=== PATIENT | male | born 1970 | race Caucasian/White ===

== ENCOUNTER 2024-04-05 10:53 | Emergency (ER) | payer OTHER, SELFPAY ==
--- NOTE | ~2024-04-05 | XR_ITS ---
EXAMINATION: XR chest 2V DATE: 04/05/2024 11:38 INDICATION: 3 weeks of productive cough TECHNIQUE: PA and lateral views of the chest were obtained. COMPARISON: None FINDINGS: The lungs are clear with no focal airspace opacities, pulmonary edema, pleural effusion or pneumothor ax. The cardiomediastinal silhouette is normal. Mild thoracic spondylosis. Partially visualized wyatt ar hook and vertical preeti at the visualized upper lumbar spine for likely more caudal posterior lumbar spinal fusion. IMPRESSION: 1. No acute cardiopulmonary disease. Reviewed, dictated and finalized at location B.
[2024-04-05 11:09] VITALS: BP 128/71; PULSE 82; RESP 16; TEMP 37.4; O2SAT 98
--- NOTE | 2024-04-05 12:01 | ED.URI ---
HPI - URI/Sore Throat General Chief Complaint: Upper Respiratory Infection Stated Complaint: Cough and Short Breath Time Seen by Provider: 04/05/24 11:23 Source: patient and RN notes reviewed Mode of arrival: ambulatory Limitations: no limitations History of Present Illness HPI Narrative: Patient presents today with 3 week history of cough that has been worsening since onset, shortness of breath with coughing episodes. Reports the cough is occasionally productive. He was taking some [id number] medicine at onset of symptoms, but nothing recently. No history of asthma or COPD. He is a nonsmoker. Related Data Home Medications Medication Instructions Recorded Confirmed lisinopril 10 1 tablet DIRECTED 04/05/24 04/05/24 mg-hydrochlorothiazide 12.5 mg tablet metformin 500 mg tablet,extended 500 mg PO DIRECTED 04/05/24 04/05/24 release 24 hr simvastatin 40 mg tablet 40 mg DIRECTED 04/05/24 04/05/24 Allergies Allergy/AdvReac Type Severity Reaction Status Date / Time ertapenem Allergy Intermediate SEVERE Unverified 01/25/09 11:36 NAUSEA, DIAPHORESIS,DIZZINESS propoxyphene Allergy Unknown Verified 01/25/09 11:36 Review of Systems Review of Systems: CONSTITUTIONAL: Denies body aches, fever, chills, or sweats. EYES: Denies visual changes, redness, or discharge. ENT: Denies rhinorrhea, congestion, sore throat, or otalgia. CARDIOVASCULAR: Denies chest pain, palpitations, or edema. RESPIRATORY: + cough, shortness breast GASTROINTESTINAL: Denies abdominal pain, nausea, vomiting, or diarrhea. GENITOURINARY: Denies dysuria or hematuria. SKIN: Denies rash, itching, or wounds. MUSCULOSKELETAL: Denies back pain, joint pain, or myalgia. NEUROLOGIC: Denies headache, numbness, tingling, or weakness. PSYCH: Denies depression or anxiety. PMFSH Comments At time of signature, I have reviewed and agree with nursing past medical, surgical, social and family history unless otherwise noted. Please see nursing chart for further information. There is no relevant family history pertinent to the presenting complaint Exam Narrative: GENERAL: Well-appearing, well-nourished, and in no acute distress. HEAD: Normocephalic, atraumatic. EYES: EOMI. No redness or drainage. Conjunctivae normal. ENT: Mucous membranes pink and moist. Nares clear. No rhinorrhea. TMs normal bilaterally. Throat normal. Uvula midline. NECK: Normal AROM. Supple. No lymphadenopathy. CHEST: No respiratory distress. Slight crackles in the bilateral lower lobes, otherwise clear HEART: Regular rate and rhythm. No murmur appreciated. EXTREMITIES: Normal range of motion. No edema. SKIN: Warm, dry, no rash. Capillary refill normal. Normal skin turgor. NEURO: No focal deficits. Alert and oriented x3. Gait steady. PSYCH: Normal affect. No signs of depression or anxiety. Course Course Level of Care: Express Care Visit Vital Signs Vital signs: Vital Signs Temperature 99.3 F 04/05/24 11:09 Pulse Rate 82 04/05/24 11:09 Respiratory Rate 16 04/05/24 11:09 Blood Pressure 128/71 04/05/24 11:09 Pulse Oximetry 98 04/05/24 11:09 Oxygen Delivery Room Air 04/05/24 11:09 Temperature 99.3 F 04/05/24 11:09 Pulse Rate 82 04/05/24 11:09 Respiratory Rate 16 04/05/24 11:09 Blood Pressure 128/71 04/05/24 11:09 Pulse Oximetry 98 04/05/24 11:09 Oxygen Delivery Room Air 04/05/24 11:09 Reviewed MDM - URI/Sore Throat MDM Narrative Medical decision making narrative: Chest x-ray negative for pneumonia. Patient will be treated for bronchitis with prednisone and an albuterol inhaler. Anticipatory guidance given Differential Diagnosis Differential diagnosis: Likely upper respiratory infection, bronchitis and other (Pneumonia) Imaging Data Radiologist's impression: ITS Impressions Chest X-Ray 04/05/24 11:41 IMPRESSION: 1. No acute cardiopulmonary disease. [facility]
== END 2024-04-05 12:08 | disposition home or self-care (01) ==
PROVIDERS: Emergency Provider Nurse Practitioner; PCP Internal Medicine Gastroenterology
DX: J40 Bronchitis, not specified as acute or chronic (principal); E78.00 Pure hypercholesterolemia, unspecified; I10 Essential (primary) hypertension; E11.9 Type 2 diabetes mellitus without complications
CPT/HCPCS: 71046; 99213; G0463

== ENCOUNTER 2024-05-29 12:43 | Emergency (ER) | payer OTHER, SELFPAY ==
[2024-05-29 12:57] VITALS: BP 139/110; PULSE 68; RESP 20; TEMP 36.3; O2SAT 98
[2024-05-29] MEDS: LIDOCAINE HCL 1% LOCAL INJ 2 ML AMPUL 8 ML INFILTRATE (13:18)
[2024-05-29] MEDS: TETANUS,DIPHTHERIA,AC PERTUSSIS ADULT (0.5 ML) BOOSTRIX IM (13:19)
--- NOTE | 2024-05-29 13:23 | ED.WOUNDLAC ---
HPI - Wound/Laceration General Chief Complaint: Wound/Laceration Stated Complaint: left middle finger cut on metal Time Seen by Provider: 05/29/24 13:07 Source: patient and RN notes reviewed Mode of arrival: ambulatory Limitations: no limitations History of Present Illness HPI narrative: Patient presents today with a laceration to his left 3rd finger. Approximately 3 hours prior to arrival patient was moving a refrigerator and cut his finger on a piece of metal on it. Denies numbness or tingling in the finger. Currently pain-free. He is not up-to-date on his tetanus vaccine. Related Data Home Medications Medication Instructions Recorded Confirmed lisinopril 10 1 tablet PO DIRECTED 04/05/24 05/29/24 mg-hydrochlorothiazide 12.5 mg tablet metformin 500 mg tablet,extended 500 mg PO DIRECTED 04/05/24 05/29/24 release 24 hr simvastatin 40 mg tablet 40 mg DIRECTED 04/05/24 05/29/24 Allergies Allergy/AdvReac Type Severity Reaction Status Date / Time ertapenem Allergy Intermediate SEVERE Verified 05/29/24 12:46 NAUSEA, DIAPHORESIS,DIZZINESS propoxyphene Allergy Unknown Nausea Verified 05/29/24 12:46 cephalexin [From Keflex] Allergy Rash Verified 05/29/24 13:09 Review of Systems Review of Systems: CONSTITUTIONAL: Denies body aches, fever, chills, or sweats. EYES: Denies visual changes, redness, or discharge. ENT: Denies rhinorrhea, congestion, sore throat, or otalgia. CARDIOVASCULAR: Denies chest pain, palpitations, or edema. RESPIRATORY: Denies cough or dyspnea. GASTROINTESTINAL: Denies abdominal pain, nausea, vomiting, or diarrhea. GENITOURINARY: Denies dysuria or hematuria. SKIN: + finger laceration MUSCULOSKELETAL: Denies back pain, joint pain, or myalgia. NEUROLOGIC: Denies headache, numbness, tingling, or weakness. PSYCH: Denies depression or anxiety. [facility] Past Medical History Medical History (Updated 05/29/24 @ 13:46 by Anju Moreland, SENIOR PRINCIPAL SOFTWARE ENGINEER, ) High cholesterol Hypertension Comments At time of signature, I have reviewed and agree with nursing past medical, surgical, social and family history unless otherwise noted. Please see nursing chart for further information. There is no relevant family history pertinent to the presenting complaint Exam Narrative: GENERAL: Well-appearing, well-nourished, and in no acute distress. HEAD: Normocephalic, atraumatic. EYES: EOMI. No redness or drainage. Conjunctivae normal. ENT: Mucous membranes pink and moist. NECK: Normal AROM. CHEST: No respiratory distress. EXTREMITIES: Left 3rd finger: Approximately 3 cm full-thickness linear laceration to the palmar aspect the proximal and middle phalanx. Distal sensation intact. Capillary refill normal. Full range of motion of the finger against resistance. SKIN: Warm, dry, no rash. Capillary refill normal. Normal skin turgor. NEURO: No focal deficits. Alert and oriented x3. Gait steady. PSYCH: Normal affect. No signs of depression or anxiety. Course Course Level of Care: Express Care Visit Vital Signs Vital signs: Vital Signs Temperature 97.3 F L 05/29/24 12:57 Pulse Rate 68 05/29/24 12:57 Respiratory Rate 20 05/29/24 12:57 Blood Pressure 139/110 H 05/29/24 12:57 Pulse Oximetry 98 05/29/24 12:57 Oxygen Delivery Room Air 05/29/24 12:57 Temperature 97.3 F L 05/29/24 12:57 Pulse Rate 68 05/29/24 12:57 Respiratory Rate 20 05/29/24 12:57 Blood Pressure 120/80 05/29/24 13:52 Pulse Oximetry 98 05/29/24 12:57 Oxygen Delivery Room Air 05/29/24 12:57 Reviewed Procedures Laceration Laceration 1: Date: 05/29/24 Time: 13:44 Site: hand Side (If applicable): left Size (cm): 3 Description: linear Depth: simple, single layer Pre-repair: wound explored and irrigated ====== Skin Level ====== Skin layer closed with: nylon Size (cm): 5-0 Number of sutures: 4
[2024-05-29 13:52] VITALS: BP 120/80
== END 2024-05-29 13:59 | disposition home or self-care (01) ==
PROVIDERS: Emergency Provider Nurse Practitioner; PCP Internal Medicine Gastroenterology
DX: S61.213A Laceration without foreign body of left middle finger without damage to nail, initial encounter (principal); W45.8XXA Other foreign body or object entering through skin, initial encounter; Z23 Encounter for immunization; E78.00 Pure hypercholesterolemia, unspecified; I10 Essential (primary) hypertension
CPT/HCPCS: 12002; 90471; 90715; 99212; G0463

== ENCOUNTER 2025-05-04 16:16 | Outpatient (CLI) | payer MEDICARE, OTHER, SELFPAY ==
--- NOTE | ~2025-05-04 | XR_ITS ---
EXAM/ PROCEDURE: XR hand LT min 3V, XR hand RT min 3V - 05/04/2025 16:40 CDT HISTORY: 55 years old Male with Bilateral hand pain COMPARISON: None available TECHNIQUE: Three view(s) each FINDINGS/ IMPRESSION: There are no fractures or dislocations.Joint space narrowing, subchondral sclerosis, subchondral cyst formation and osteophyte formation, compatible with mild osteoarthritis. Reviewed, dictated and finalized at location A.
--- NOTE | ~2025-05-04 | XR_ITS ---
XR knee RT 3V 05/04/2025 16:51 Indication: Chronic right knee pain Procedure: 3 views right knee Comparison: No prior studies for comparison. Findings: There is mild patellofemoral compartment osteoarthritis. No fracture, subluxation or disloc ation. No significant joint effusion. No foreign bodies. Impression: 1: Mild patellofemoral compartment osteoarthritis. Reviewed, dictated and finalized at location A. Impression: 1: Mild patellofemoral compartment osteoarthritis.
--- OUTSIDE RECORDS SUMMARY | 2025-05-04 16:34 | XMS_ITS | Clinical Summary ---
Author Organization 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 Gender Identity Not on file Sexual Orientation Not on file Obstetrics History Last Filed Vital Signs Vital Sign Reading Time Taken Comments Blood Pressure 123/79 06/25/2023 5:33 PM CDT Pulse 80 06/25/2023 5:33 PM CDT Temperature 36.9 C (98.4 F) 06/25/2023 5:33 PM CDT Respiratory Rate 19 06/25/2023 5:33 PM CDT Oxygen Saturation 98% 06/25/2023 5:33 PM CDT Inhaled Oxygen Concentration - - Weight 104.3 kg (230 lb) 06/25/2023 5:33 PM CDT Height 162.6 cm (5' 4) 06/25/2023 5:33 PM CDT Body Mass Index 39.48 06/25/2023 5:33 PM CDT Plan of Treatment Health Maintenance Due Date Last Done Comments Colon Cancer Screening-Colonoscopy 1971 Depression Screening 1971 Hepatitis C Screening 1971 Prostate Cancer Screening-PSA 1971 Hepatitis B Screening 1989 Regular Well Visit/Exam 18-64 1989 Zoster Vaccine (1 of 2) 2021 Influenza Vaccine (#1) 2025 DTaP/Tdap/Td Vaccine (2 - Td or Tdap) 12/18/2026 12/18/2016 Pneumococcal vaccine <65 Aged Out No longer eligible based on patient's age to complete this topic Insurance [facility] [place] [facility] [place] Care Teams Boat Pilot Relationship Specialty Start Date End Date Unknown, Notinfile PCP - General 06/25/23
--- OUTSIDE RECORDS SUMMARY | 2025-05-04 16:34 | XMS_ITS | Clinical Summary ---
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 Gender Identity Not on file Sexual Orientation Not on file Plan of Treatment Health Maintenance Due Date Last Done Comments Colorectal Cancer Screening Colonoscopy (10 Years) 1971 Annual Physical 1974 Hepatitis C 1989 Hepatitis B Vaccines (1 of 3 - 19+ 3-dose series) 1990 Pneumococcal Vaccine: 50+ Ye ars (1 of 1 - PCV) 2021 Zoster Vaccines (1 of 2) 2021 COVID-19 Vaccine ( - 2023-2 5 season) 2024 DTaP, Tdap and Td Vaccines ( 2 - Td or Tdap) 12/18/2026 12/18/2016 Meningococcal B Vaccine Aged Out No l onger eligible based on patient's age to complete this topic Meningococcal Vaccine Aged Out No blu troy eligible based on patient's age to complete this topic RSV Immunizations Under 20 Months Aged Out No longer eligible based on patient's age to complete this topic Insurance [employer] Care Teams Roustabout Head Relationship Specialty Start Date End Date Bernarda Herbert PA-C [address] [place] [address] PCP - General PHYSICIAN HIDE M[employer] WORKER 12/21/21
--- OUTSIDE RECORDS SUMMARY | 2025-05-04 16:34 | XMS_ITS | Data Portability ---
Author Organization [place] [facility] Address [address] [place] [address] Care Team Providers Care Food And Beverage Analyst Name Role Phone ANU VAERLA Primary Care Provider Assessment Encounter Date Assessment Date Assessment LastModified by Organization Details LastModified Time 09/16/2023 09/16/2023 ROD Pastrana PA-S Not available 09/16/2023 11:02:11 Plan of Treatment Reminders Order Date Submit Date Provider Last Modified By Organization Details Last Modified Time Details Appointments NEW PATIENT 30 2024 03:00P M GRETA BLUE Not available Not available Not available Lab HbA1c (hemogl obin A1c), blood 2023 024 [facility], [address] [place] [address], [address], [place], [address], 04/22/2024 08:26:57 PSA, total, serum or plasma 2023 024 [facility], [address] [place] [address], [address], [place], [address], 04/22/2024 08:26:57 CMP, serum or plasma 2023 024 [facility], [address] [place] [address], [address], [place], [address], 04/22/2024 08:26:55 lipid panel, serum 2023 024 [facility], [address], [address], [place], [address], 04/22/2024 08:26:54 CBC 2023 024 [facility], [address], [address], [place], [address], 04/22/2024 08:26:58 TSH, ultra-s ensitiv e, serum 2023 024 [facility], [address], [address], [place], [address], 04/22/2024 08:26:56 CMP, serum or plasma 2022 023 [facility], [address], [address], [place], [address], 09/17/2023 06:17:59 CBC w/ auto diff 2022 023 [facility], [address], [address], [place], [address], 09/17/2023 06:18:00 HbA1c (hemogl obin A1c), blood 2022 023 In-Office Order, Internal Use Only DO Not Attach Compendium DO Not Attach Compendium, Do Not Delete/merge, [id number] 09/16/2023 11:15:13 albumin /creati nine, mass ratio, urine 2022 023 [facility], [address], [address], [place], [address], 12/29/2023 12:48:50 lipid panel, serum 2022 023 [facility], [address], [address], [place], [address], 09/17/2023 06:17:58 HbA1c (hemogl obin A1c), blood 2022 023 [facility] In-Office Order, Internal Use Only DO Not Attach Compendium DO Not Attach Compendium, Do Not Delete/merge, [id number] 06/12/2023 14:23:06 albumin /creati nine, mass ratio, urine 2022 023 [facility], [address] [place] [address] [address], [address], [place], [address], 06/12/2023 12:18:14 CMP, serum or plasma 2022 023 [facility], [address] [place] [address] [address], [address], [place], [address], 06/12/2023 12:18:13 CBC w/ auto diff 2022 023 [facility], [address] [place] [address] [address], [address], [place], [address], 06/12/2023 12:18:13 lipid panel, serum 2022 023 [facility], [address] [place] [address], [address], [place], [address], 06/12/2023 12:18:13 Referral podiatr ist referra l 2023 024 [email or web address] Santosh Wilkerson DPM, [address], [place], [address], 10/30/2024 09:02:56 diabeti c ophthal mology referra l - Diabete s eye exam 2022 023 [facility], [address], [place], [address], 07/15/2024 23:29:10 Procedures None recorde d. Surgeries None recorde d. Imaging MRI, knee, w/o contras t - positiv e mcmurra y sign, gives out on him, pain and instabi lity for six months, neggreta bhandari# [id number] 21 023-01/11 023 [facility] ([facility]), [address] [place], [address], 08/14/2023 12:50:07 XR, hand, 3 or more view - Left MCP joint pain and swellin g x 1 month [address] [place], [address], 09/19/2023 18:29:05 XR, knee - posteri or knee pain and instabi lity x 7-8 months 2022 023 [facility], [address] [place] [address] [place], [address], 09/15/2023 15:16:26 Medication Orders Zithrom ax Z-Cal 250 mg tablet [address] [facility], [facility] [place], [address], 05/04/2025 16:04:23 dextrom ethorph an-guai fenesin 10 mg-100 mg/5 mL oral syrup [address] [facility], [facility] [place], [address], 05/04/2025 16:04:36 cetiriz ine 10 mg tablet [address] [facility], [address] [place], [address], 05/04/2025 16:04:28 simvast atin 40 mg tablet 2023 024 [facility], [address] [place], [address], 04/21/2024 12:55:49 lisinop ril 10 mg-hydr ochloro thiazid e 12.5 mg tablet 2023 024 [facility] [address], [address] [place] [address], [address], 04/21/2024 12:55:51 metform in ER 500 mg tablet, extende d release 24 hr 2022 023 [facility] [address], [address] [place] [address], [address], 09/16/2023 10:54:21 lisinop ril 10 mg-hydr ochloro thiazid e 12.5 mg tablet 2022 023 [facility] [address], [address] [place] [address], [address], 09/16/2023 10:54:22 simvast atin 40 mg tablet 2022 023 [facility] [address], [address] [place] [address], [address], 09/16/2023 10:54:27 metform in ER 500 mg tablet, extende d release 24 hr 2022 023 [facility] [address], [address] [place] [address], [address], 06/12/2023 12:29:59 meloxic am 15 mg tablet 2022 [facility] [address] [place] [address], [address], 07/07/2023 14:33:26 lisinop ril 10 mg-hydr ochloro thiazid e 12.5 mg tablet 2022 023 [facility] [address], [address] [place] [address], [address], 06/12/2023 12:18:06 simvast atin 40 mg tablet 2022 023 [facility], [address] [facility], [place], [address], 06/12/2023 12:18:07 Patient TargetsNo targets recorded. Patient Instructions Encounter Date Encounter Id Patient Instructions Last Modified By Organization Details Last Modified Time 06/12/2023 [id number] A healthy lifestyle: care instructions Not available 06/12/2023 12:17:58 hamstring strain : care instructions Not available 06/12/2023 12:47:22 hamstring strain : rehab exercises Not available 06/12/2023 12:47:22 04/21/2024 [id number] bronchitis: care instructions [email or web address] Not available 04/21/2024 12:55:41 learning about type 2 diabetes Not available 04/21/2024 12:55:41 type 2 diabetes: care instructions Not available 04/21/2024 12:55:41 cough: care instructions [email or web address] Not available 04/21/2024 12:55:42 When You Want to Lose Weight: Care Instructions [email or web address] Not available 04/21/2024 12:55:41 A healthy lifestyle: care instructions [email or web address] Not available 04/21/2024 12:55:41 Reason for Referral Diabetic Ophthalmology Refer ral for Type 2 diabetes mellitus Diabetes eye exam Referring Physician: Bernarda Herbert, Irrigation District Manager, Encounter Date: 09/16/2023 Casualty Claim Adjuster Referral for Type 2 diabetes mellitus Diabetic footcare Referring Physician: Bailey Luna, Internal Medicine, Encounter Date: 04/21/2024 Hand Surgeon Referral for Ac quired trigger finger of left middle finger Referring Physician: Anu Varela, Family Medicine, Encounter Date: 05/04/2025 Results Created Date Observation Date Name Description Value Unit Range Abnormal Flag Note LastModifiedBy Organization Detail LastModifiedTime 06/12/2006/12/2023 HbA1c (hemo globi n A1c), blood HbA1c 7.4 Not Available In-Office Order Internal Use Only DO Not Attach Compendium DO Not Attach Compendium, Do Not Delete/merge, [id number] 06/12/2023 12:16:34 09/16/2009/16/2023 LIPID PANEL cholesterol, total 146 mg/dL 100-19 9 Not Available [address], [address], 09/17/2023 06:17:58 09/16/20 23 09/16/2023 LIPID PANEL triglyceride s 98 mg/dL 0-149 Not Available [address], [address], 09/17/2023 06:17:58 09/16/20 23 09/16/2023 LIPID PANEL HDL cholesterol 37 mg/dL 40-999 below low normal Not Available [address], [address], 09/17/2023 06:17:58 09/16/20 23 09/16/2023 LIPID PANEL VLDL cholesterol kaleb 20 mg/dL 5-40 Not Available [address], [address], 09/17/2023 06:17:58 09/16/20 23 09/16/2023 LIPID PANEL LDL chol calc ([facility]) 103 mg/dL 0-99 above high normal Not Available [address], [address], 09/17/2023 06:17:58 09/16/20 23 09/16/2023 COMP. METAB OLIC PANEL (14) glucose 150 mg/dL 70-99 above high normal Not Available [address], [address], 09/17/2023 06:17:59 09/16/20 23 09/16/2023 COMP. METAB OLIC PANEL (14) BUN 10 mg/dL 6-24 Not Available [facility] & [address], [address], 09/17/2023 06:17:59 09/16/20 23 09/16/2023 COMP. METAB OLIC PANEL (14) creatinine 0.67 mg/dL 0.76-1 .27 below low normal Not Available [address], [address], 09/17/2023 06:17:59 09/16/20 23 09/16/2023 COMP. METAB OLIC PANEL (14) eGFR 112 >=60 Units for eGFR value s are mL/mi n/1.7 3 The eGFR Calcu latio n has not been valid ated for patie nts under the age of 18. If test resul ts are displ ayed for a patie nt under the age of 18, disre carla that value . Not Available [facility] & [address], [address], 09/17/2023 06:17:59 09/16/20 23 09/16/2023 COMP. METAB OLIC PANEL (14) BUN/creatini ne ratio 15 9-20 Not Available [facility] & [address], [address], 09/17/2023 06:17:59 09/16/20 23 09/16/2023 COMP. METAB OLIC PANEL (14) sodium 138 mmol/ L 134-14 4 Not Available [address], [address], 09/17/2023 06:17:59 09/16/20 23 09/16/2023 COMP. METAB OLIC PANEL (14) potassium 4.6 mmol/ L 3.5-5. 2 Not Available [address], [address], 09/17/2023 06:17:59 09/16/20 23 09/16/2023 COMP. METAB OLIC PANEL (14) chloride 98 mmol/ L 96-106 Not Available [address], [address], 09/17/2023 06:17:59 09/16/20 23 09/16/2023 COMP. METAB OLIC PANEL (14) carbon dioxide, total 28 mmol/ L 20-29 Not Available [address], [address], 09/17/2023 06:17:59 09/16/20 23 09/16/2023 COMP. METAB OLIC PANEL (14) calcium 10.0 mg/dL 8.7-10 .2 Not Available [address], [address], 09/17/2023 06:17:59 09/16/20 23 09/16/2023 COMP. METAB OLIC PANEL (14) protein, total 7.3 g/dL 6.0-8. 5 Not Available [address], [address], 09/17/2023 06:17:59 09/16/20 23 09/16/2023 COMP. METAB OLIC PANEL (14) albumin 4.3 g/dL 3.8-4. 9 Not Available [address], [address], 09/17/2023 06:17:59 09/16/20 23 09/16/2023 COMP. METAB OLIC PANEL (14) globulin, total 3.0 g/dL 1.5-4. 5 Not Available [address], [address], 09/17/2023 06:17:59 09/16/20 23 09/16/2023 COMP. METAB OLIC PANEL (14) A/G ratio 1.0 1.2-2. 2 below low normal Not Available [address], [address], 09/17/2023 06:17:59 09/16/20 23 09/16/2023 COMP. METAB OLIC PANEL (14) bilirubin, total 0.8 mg/dL 0.0-1. 2 Not Available [address], [address], 09/17/2023 06:17:59 09/16/20 23 09/16/2023 COMP. METAB OLIC PANEL (14) alkaline phosphatase 137 IU/L 44-121 above high normal Not Available [address], [address], 09/17/2023 06:17:59 09/16/20 23 09/16/2023 COMP. METAB OLIC PANEL (14) AST (SGOT) 27 IU/L 0-40 Not Available [address], [address], 09/17/2023 06:17:59 09/16/20 23 09/16/2023 COMP. METAB OLIC PANEL (14) ALT (SGPT) 45 IU/L 0-44 above high normal Not Available [address], [address], 09/17/2023 06:17:59 09/16/20 23 09/16/2023 CBC WITH DIFFE RENTI AL/PL ATELE T WBC 5.9 x10e3 /uL 3.4-10 .8 Not Available [address], [address], 09/17/2023 06:18:00 09/16/20 23 09/16/2023 CBC WITH DIFFE RENTI AL/PL ATELE T RBC 5.27 x10e6 /uL 4.14-5 .80 Not Available [address], [address], 09/17/2023 06:18:00 09/16/20 23 09/16/2023 CBC WITH DIFFE RENTI AL/PL ATELE T hemoglobin 15.6 g/dL 13.0-1 7.7 Not Available [address], [address], 09/17/2023 06:18:00 09/16/2009/16/2023 CBC WITH DIFFE RENTI AL/PL ATELE T hematocrit 46.8 % 37.5-5 1.0 Not Available [address], [address], 09/17/2023 06:18:00 09/16/2009/16/2023 CBC WITH DIFFE RENTI AL/PL ATELE T MCV 89 fL 79-97 Not Available [facility] & [address], [address], 09/17/2023 06:18:00 09/16/20 23 09/16/2023 CBC WITH DIFFE RENTI AL/PL ATELE T MCH 29.6 pg 26.6-3 3.0 Not Available [address], [address], 09/17/2023 06:18:00 09/16/20 23 09/16/2023 CBC WITH DIFFE RENTI AL/PL ATELE T MCHC 33.3 g/dL 31.5-3 5.7 Not Available [address], [address], 09/17/2023 06:18:00 09/16/20 23 09/16/2023 CBC WITH DIFFE RENTI AL/PL ATELE T RDW 12.8 % 11.5-1 4.5 Not Available [address], [address], 09/17/2023 06:18:00 09/16/20 23 09/16/2023 CBC WITH DIFFE RENTI AL/PL ATELE T platelets 208 x10e3 /uL 150-45 0 Not Available [facility] & [address], [address], 09/17/2023 06:18:00 09/16/20 23 09/16/2023 CBC WITH DIFFE RENTI AL/PL ATELE T neutrophils 53 % notest b. Not Available [address], [address], 09/17/2023 06:18:00 09/16/20 23 09/16/2023 CBC WITH DIFFE RENTI AL/PL ATELE T lymphs 36 % notest b. Not Available [address], [address], 09/17/2023 06:18:00 09/16/20 23 09/16/2023 CBC WITH DIFFE RENTI AL/PL ATELE T monocytes 8 % notest b. Not Available [address], [address], 09/17/2023 06:18:00 09/16/20 23 09/16/2023 CBC WITH DIFFE RENTI AL/PL ATELE T eos 1 % notest b. Not Available [address], [address], 09/17/2023 06:18:00 09/16/20 23 09/16/2023 CBC WITH DIFFE RENTI AL/PL ATELE T basos 1 % notest b. Not Available [address], [address], 09/17/2023 06:18:00 09/16/20 23 09/16/2023 CBC WITH DIFFE RENTI AL/PL ATELE T neutrophils (absolute) 3.2 x10e3 /uL 1.4-7. 0 Not Available [address], [address], 09/17/2023 06:18:00 09/16/20 23 09/16/2023 CBC WITH DIFFE RENTI AL/PL ATELE T lymphs (absolute) 2.1 x10e3 /uL 0.7-3. 1 Not Available [address], [address], 09/17/2023 06:18:00 09/16/2009/16/2023 CBC WITH DIFFE RENTI AL/PL ATELE T monocytes(ab solute) 0.5 x10e3 /uL 0.1-0. 9 Not Available [address], [address], 09/17/2023 06:18:00 09/16/20 23 09/16/2023 CBC WITH DIFFE RENTI AL/PL ATELE T eos (absolute) 0.1 x10e3 /uL 0.0-0. 4 Not Available [address], [address], 09/17/2023 06:18:00 09/16/20 23 09/16/2023 CBC WITH DIFFE RENTI AL/PL ATELE T baso (absolute) 0.1 x10e3 /uL 0.0-0. 2 Not Available [address], [address], 09/17/2023 06:18:00 09/16/20 23 09/16/2023 CBC WITH DIFFE RENTI AL/PL ATELE T immature granulocytes 0.5 % notest b. Not Available [address], [address], 09/17/2023 06:18:00 09/16/20 23 09/16/2023 CBC WITH DIFFE RENTI AL/PL ATELE T immature grans (abs) 0.0 x10e3 /uL 0.0-0. 1 Not Available [address], [address], 09/17/2023 06:18:00 09/16/20 23 09/16/2023 CBC WITH DIFFE RENTI AL/PL ATELE T NRBC 0 % 0-0 Not Available [facility] & [address], [address], 09/17/2023 06:18:00 09/16/20 23 09/16/2023 DIABE MICKY PATIE NT EDUCA TION pdf . Not Available [address], [address], 09/17/2023 06:18:00 09/16/20 23 09/16/2023 HbA1c (hemo globi n A1c), blood HbA1c 7.0 % Not Available In-Office Order Internal Use Only DO Not Attach Compendium DO Not Attach Compendium, Do Not Delete/merge, [id number] 09/16/2023 10:40:10 04/21/20 24 04/22/2024 LIPID PANEL cholesterol, total 200 mg/dL 100-19 9 above high normal Not Available [facility] ([facility]) [address] [place], [address], 04/22/2024 08:26:54 04/21/20 24 04/22/2024 LIPID PANEL triglyceride s 150 mg/dL 0-149 above high normal Not Available [facility] ([facility]) [address] [place], [address], 04/22/2024 08:26:54 04/21/20 24 04/22/2024 LIPID PANEL HDL cholesterol 42 mg/dL >39 Not Available [facility]) [address] [place], [address], 04/22/2024 08:26:54 04/21/20 24 04/22/2024 LIPID PANEL VLDL cholesterol kaleb 27 mg/dL 5-40 Not Available [facility]) [address] [place], [address], 04/22/2024 08:26:54 04/21/20 24 04/22/2024 LIPID PANEL LDL chol calc ([facility]) 131 mg/dL 0-99 above high normal Not Available [facility] ([facility]) [address] [place], [address], 04/22/2024 08:26:54 04/21/20 24 04/22/2024 COMP. METAB OLIC PANEL (14) glucose 158 mg/dL 70-99 above high normal Not Available [facility] ([facility]) [address] [place], [address], 04/22/2024 08:26:55 04/21/20 24 04/22/2024 COMP. METAB OLIC PANEL (14) BUN 11 mg/dL 6-24 Not Available [facility] ([facility]) [address] [place], [address], 04/22/2024 08:26:55 04/21/20 24 04/22/2024 COMP. METAB OLIC PANEL (14) creatinine 0.64 mg/dL 0.76-1 .27 below low normal Not Available [facility] ([facility]) [address] [place], [address], 04/22/2024 08:26:55 04/21/20 24 04/22/2024 COMP. METAB OLIC PANEL (14) eGFR 113 mL/mi n/1.7 3 >59 Not Available [facility] ([facility]) [address] [place], [address], 04/22/2024 08:26:55 04/21/20 24 04/22/2024 COMP. METAB OLIC PANEL (14) BUN/creatini ne ratio 17 9-20 Not Available [facility] ([facility]) [address] [facility], [place], [address], 04/22/2024 08:26:55 04/21/20 24 04/22/2024 COMP. METAB OLIC PANEL (14) sodium 137 mmol/ L 134-14 4 Not Available [facility] ([facility]) [address] [facility], [place], [address], 04/22/2024 08:26:55 04/21/20 24 04/22/2024 COMP. METAB OLIC PANEL (14) potassium 4.0 mmol/ L 3.5-5. 2 Not Available [facility] ([facility]) [address] [facility] [place] [place], [address], 04/22/2024 08:26:55 04/21/20 24 04/22/2024 COMP. METAB OLIC PANEL (14) chloride 97 mmol/ L 96-106 Not Available [facility] ([facility]) [address] [facility], [place], [address], 04/22/2024 08:26:55 04/21/20 24 04/22/2024 COMP. METAB OLIC PANEL (14) carbon dioxide, total 25 mmol/ L 20-29 Not Available [facility] ([facility]) [address] [facility] [place] [place], [address], 04/22/2024 08:26:55 04/21/20 24 04/22/2024 COMP. METAB OLIC PANEL (14) calcium 9.5 mg/dL 8.7-10 .2 Not Available [facility] ([facility]) [address] [facility] [place], [address], 04/22/2024 08:26:55 04/21/20 24 04/22/2024 COMP. METAB OLIC PANEL (14) protein, total 6.8 g/dL 6.0-8. 5 Not Available [facility] ([facility]) [address] [facility] [place] [place], [address], 04/22/2024 08:26:55 04/21/20 24 04/22/2024 COMP. METAB OLIC PANEL (14) albumin 4.0 g/dL 3.8-4. 9 Not Available [facility] ([facility]) [address] [place], [address], 04/22/2024 08:26:55 04/21/20 24 04/22/2024 COMP. METAB OLIC PANEL (14) globulin, total 2.8 g/dL 1.5-4. 5 Not Available [facility] ([facility]) [address] [place], [address], 04/22/2024 08:26:55 04/21/20 24 04/22/2024 COMP. METAB OLIC PANEL (14) bilirubin, total 0.7 mg/dL 0.0-1. 2 Not Available [facility] ([facility]) [address] [place], [address], 04/22/2024 08:26:55 04/21/20 24 04/22/2024 COMP. METAB OLIC PANEL (14) alkaline phosphatase 132 IU/L 44-121 above high normal Not Available [facility] ([facility]) [address] [place], [address], 04/22/2024 08:26:55 04/21/20 24 04/22/2024 COMP. METAB OLIC PANEL (14) AST (SGOT) 23 IU/L 0-40 Not Available [facility] ([facility]) [address] [place], [address], 04/22/2024 08:26:55 04/21/20 24 04/22/2024 COMP. METAB OLIC PANEL (14) ALT (SGPT) 32 IU/L 0-44 Not Available [facility] ([facility]) [address] [facility] [place] [place], [address], 04/22/2024 08:26:55 04/21/20 24 04/22/2024 TSH RFX ON ABNOR MAL TO FREE T4 TSH 1.080 uIU/m L 0.450- 4.500 Not Available [facility] ([facility]) [address] [facility], [place], [address], 04/22/2024 08:26:56 04/21/20 24 04/22/2024 HEMOG LOBIN A1C hemoglobin A1C 7.4 % 4.8-5. 6 above high normal Predi abete s: 5.7 - 6.4 Diabe micky: >6.4 Glyce chrissy contr ol for adult s with diabe micky: <7.0 Not Available [facility] ([facility]) [address] [facility], [place], [address], 04/22/2024 08:26:57 04/21/20 24 04/22/2024 PROST ATE-S PECIF IC AG prostate specific Ag 2.0 NG/mL 0.0-4. 0 [place] ECLIA metho dolog y. Accor ding to the Ameri can [employer]o g[employer] iatio n, Serum PSA shoul d decre ase and remai n at undet ectab le level s after radic al prost atect lisa. The AUA defin es bioch emica l recur rence as an initi al PSA value 0.2 ng/mL or great er follo wed by a subse quent confi rmato ry PSA value 0.2 ng/mL or great er. Value s obtai jesús with diffe rent assay metho ds or kits canno t be used inter israel eably . Resul ts canno t be inter prete d as absol jaqui evide nce of the prese nce or absen ce of chris weinstein se. Not Available [facility] ([facility]) [address] [facility], [place], [address], 04/22/2024 08:26:57 04/21/20 24 04/22/2024 CBC, PLATE LET, NO DIFFE RENTI AL WBC 10.2 x10e3 /uL 3.4-10 .8 Not Available [facility] ([facility]) [address] [facility], [place], [address], 04/22/2024 08:26:58 04/21/20 24 04/22/2024 CBC, PLATE LET, NO DIFFE RENTI AL RBC 5.23 x10e6 /uL 4.14-5 .80 Not Available [facility] ([facility]) [address] [facility], [place], [address], 04/22/2024 08:26:58 04/21/20 24 04/22/2024 CBC, PLATE LET, NO DIFFE RENTI AL hemoglobin 15.5 g/dL 13.0-1 7.7 Not Available [facility] ([facility]) [address] [facility], [place], [address], 04/22/2024 08:26:58 04/21/20 24 04/22/2024 CBC, PLATE LET, NO DIFFE RENTI AL hematocrit 46.8 % 37.5-5 1.0 Not Available [facility] ([facility]) [address] [facility], [place], [address], 04/22/2024 08:26:58 04/21/20 24 04/22/2024 CBC, PLATE LET, NO DIFFE RENTI AL MCV 90 fL 79-97 Not Available [facility] ([facility]) [address] [facility], [place], [address], 04/22/2024 08:26:58 04/21/20 24 04/22/2024 CBC, PLATE LET, NO DIFFE RENTI AL MCH 29.6 pg 26.6-3 3.0 Not Available [facility] ([facility]) [address] [facility], [place], [address], 04/22/2024 08:26:58 04/21/20 24 04/22/2024 CBC, PLATE LET, NO DIFFE RENTI AL MCHC 33.1 g/dL 31.5-3 5.7 Not Available [facility] ([facility]) [address], [place], [address], 04/22/2024 08:26:58 04/21/20 24 04/22/2024 CBC, PLATE LET, NO DIFFE RENTI AL RDW 13.0 % 11.6-1 5.4 Not Available [facility] ([facility]) [address] [facility], [place], [address], 04/22/2024 08:26:58 04/21/20 24 04/22/2024 CBC, PLATE LET, NO DIFFE RENTI AL platelets 210 x10e3 /uL 150-45 0 Not Available [facility] ([facility]) [address] [facility], [place], [address], 04/22/2024 08:26:58 05/04/20 25 05/04/2025 HbA1c (hemo globi n A1c), blood HbA1C 10.2 % Not Available In-Office Order Internal Use Only DO Not Attach Compendium DO Not Attach Compendium, Do Not Delete/merge, [id number] 05/04/2025 16:27:45 08/14/2008/14/2023 MRI, knee, w/o contr ast No observ ation record ed. [facility] [address] [place], [address], 08/15/2023 11:04:26 09/19/20 23 09/18/2023 XR, hand, 3 or more view No observ ation record ed. [facility] [address] , [place], [address], 09/23/2023 13:05:29 04/05/20 24 04/05/2024 XR, chest No observ ation record ed. [place] [id number] [facility] [address], [place], [address], 04/06/2024 04:06:28 Result Notes None recorded. Problems Name Problem SNOMED Code Status Onset Date Resolution Date Notes Provider Name and Address Organization Details Recorded Time Hyperlip idemia 24911051 Active Darlene Zarate PA-C Attn: Accounting ,[address], [place], [address] , [place] - [facility] 6 12:33:06 Increase d blood pressure 29247418 Completed 07/30/2019 GRETA CHEN Attn: Accounting ,[address], [place], [address] , [place] [facility] 9 11:38:40 Edema 014043008 Active Darlene Zarate PA-C Attn: Accounting ,[address] [facility], [place], [address] , [place] [facility] 5 11:44:21 Lipoma 13521944 Active Darlene Zarate PA-C Attn: Accounting ,[address], [place], [address] , [place] [facility] 15:32:52 Liver enzymes outside referenc e range 961031186 Completed 12/24/2021 GRETA CHEN Attn: Accounting ,[address] [facility], [place], [address] , [place] [facility] 2 14:46:33 Blood glucose outside referenc e range 038178056 Completed 09/29/2020 GRETA CHEN Attn: Accounting ,[address] [facility], [place], [address] , [place] [facility] 0 12:59:32 [facility] hyperten mignon 63315908 Active Darlene Zarate PA-C Attn: Accounting ,[address] [facility], [place], [address] , [place] [facility] 6 14:51:35 Obesity 881749499 Completed 201609/10/2018 Darlene Zarate PA-C Attn: Accounting ,[address] [facility], [place], [address] , [place] [facility] 8 16:31:51 Leukocyt osis 959470947 Active 2016 Darlene Zarate PA-C Attn: Accounting ,[address] [facility], [place], [address] , [place] [facility] 7 10:18:47 Body mass index 30+ - obesity 299244142 Active 2017 Darlene Zarate PA-C Attn: Accounting ,[address] [facility], [place], [address] , [place] [facility] 8 16:32:11 Type 2 diabetes mellitus 73300052 Active 2018 New dx on 07/30/19 GRETA CHEN Attn: Accounting ,[address] [facility], [place], [address] , [place] [facility] 9 09:53:06 Helicoba cter pylori gastroin testinal tract infectio n 708686989 Active 2021 GRETA CHEN Attn: Accounting ,[address] [facility], [place], [address] , [place] [facility] 09:18:08 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 Plan for repeat US in 6 months GRETA CHEN Attn: Accounting ,[address] [facility], [place], [address] , [place] [facility] 14:48:15 Morbid obesity 211573354 Active 2023 Bailey Luna MD Attn: Accounting ,[address] [facility], [place], [address] , [place] [facility] 4 12:46:50 Screenin g for malignan t neoplasm of prostate Active 2023 Bailey Luna MD Attn: Accounting ,[address] [facility], [place], [address] , [place] [facility] 4 12:50:41 Cough 49223625 Active 2023 Bailey Luna MD Attn: Accounting ,[address] [facility], [place], [address] , [facility] - [facility] 4 12:51:23 Bronchit is 06760968 Active 2023 Bailey Luna MD Attn: Accounting ,[address] [facility], [place], [address] , [place] [facility] 4 12:51:52 Problem Notes None recorded. Procedures Surgical History Date Name Laterality Status Provider Name and Address Organization Details Recorded Time 10/13/19 10 Appendectomy completed Dulce [place] [facility] 05/15/2015 14:50:33 10/13/19 04 Arthroscopic Surgery completed Dulcemanish Tracey [place] [facility] 05/15/2015 14:50:33 10/13/18 92 Back Surgery completed Dulce[place]ish [place]acey [place] [facility] 05/15/2015 14:50:33 Other completed Darlene Zarate PA-C Attn: Accounting, [facility], [place], [address], [place] [facility] 05/15/2015 15:01:51 Imaging Results None recorded. Procedure Notes None recorded. Medical Equipment None Reported. Allergies Allergen ID Allergen Name Allergen Category Reaction Reaction Severity Criticality Documentation Date Start Date Code Code System Note Provider Name and Address Organization Details Recorded Time 67748 Keflex medicatio n nausea Not available Not available 05/15/2015 7 RxNorm ERICK [place] [facility] 5 14:50:33 95053 Darvocet- N medicatio n nausea Not available Not available 05/15/2015 47388 UNK ERICK [place] [facility] 5 14:50:33 Medications Name Sig Start Date Stop Date Status Note LastModified by Organization Details LastModified Time simvastatin 40 mg tabs 07/30 completed Not Available Not Available Not Available lisinopril/ hydrochloro thiazide 10-12.5 mg tabs 07/30 completed Not Available Not Available Not Available hydrochloro thiazide 12.5 mg caps 10/25 completed Not Available Not Available Not Available ibuprofen 800 mg tabs 09/10 completed Not Available Not Available Not Available cholestyram ine light 4 gm/dose powd 10/25 completed Not Available Not Available Not Available lisinopril/ hydrochloro thiazide 20-12.5 mg tabs 10/25 completed Not Available Not Available Not Available lovastatin 40 mg tabs 10/25 completed Not Available Not Available Not Available penicillin v potassium 500 mg tabs 04/29 completed Not Available Not Available Not Available proair hfa 108 (90 base) mcg/act aers 09/10 completed Not Available Not Available Not Available amoxicillin 500 mg capsule TAKE 2 CAPSULES BY MOUTH EVERY 12 HOURS WITH MEALS FOR 14 DAYS 01/22 completed Not Available Not Available Not Available metformin 500 mg tablet TAKE 1 TABLET TWICE A DAY WITH MEALS FOR 1 WK, THEN TAKE 2 TABLETS TWICE A DAY WITH MEALS FOR 30 DAYS 2024 active Not Available Not Available Not Avai lable cetirizine 10 mg tablet TAKE 1 TABLET BY MOUTH ONCE DAILY 05/04 completed Not Available Not Available Not Available lisinopril 20 mg-hydrochl orothiazide 12.5 mg tablet Take 1 tablet every day by oral route. 06/26 completed Not Available Not Available Not Available azithromyci n 250 mg tablet TAKE 2 TABLETS BY MOUTH ON DAY 1, AND THEN TAKE 1 TABLET BY MOUTH ONCE A DAY ON DAY 2 THROUGH DAY 5 05/04 completed Not Available Not Available Not Available clarithromy veronica 500 mg tablet TAKE 1 TABLET BY MOUTH EVERY 12 HOURS WITH MEALS FOR 14 DAYS 01/22 completed Not Available Not Available Not Available meloxicam 15 mg tablet TAKE 1 TABLET BY MOUTH ONCE DAILY WITH MEALS FOR 14 DAYS 07/07 completed Not Available Not Available Not Available sucralfate 1 gram tablet TAKE 1 TABLET BY MOUTH 4 TIMES DAILY BEFORE MEAL(S) FOR 14 DAYS 01/22 completed Not Available Not Available Not Available lovastatin 40 mg tablet Take 1 tablet every day by oral route. 03/18 completed Not Available Not Available Not Available metronidazo le 500 mg tablet Take 1 tablet twice a day by oral route as directed for 7 days. 06/12 completed Not Available Not Available Not Available fluocinonid e 0.05 % topical ointment APPLY OINTMENT TOPICALLY TO AFFECTED AREA TWICE DAILY 05/04 completed Not Available Not Available Not Available dextrometho rphan-guaif enesin 10 mg-100 mg/5 mL oral syrup Take 10 mL 4 times a day by oral route. 05/04 completed Not Available Not Available Not Available omeprazole 40 mg capsule,del ayed release TAKE 1 CAPSULE BY MOUTH ONCE DAILY DIRECTED FOR 30 DAYS 01/22 completed Not Available Not Available Not Available amoxicillin 500 mg tablet Take 2 tablets every 12 hours by oral route with meals for 14 days. 01/22 completed Not Available Not Available Not Available simvastatin 40 mg tablet Take 1 tablet every day by oral route at dinner for 90 days, for high cholester ol. 2024 active Not Available Not Available Not Avai lable Zantac 150 mg tablet Take 1 tablet every day by oral route. 09/10 completed OTC Not Available Not Available Not Available OneTouch Ultra Test strips USE 1 STRIP TO CHECK FASTING GLUCOSE IN THE MORNING 05/04 completed Not Available Not Available Not Available prednisone 50 mg tablet TAKE 1 TABLET BY MOUTH ONCE DAILY FOR 5 DAYS 04/21 completed Not Available Not Available Not Available hydrochloro thiazide 12.5 mg capsule Take 1 capsule every day by oral route. 06/26 completed Not Available Not Available Not Available lisinopril 10 mg-hydrochl orothiazide 12.5 mg tablet TAKE 1 TABLET BY MOUTH ONCE DAILY FOR HIGH BLOOD PRESSURE 2024 active Not Available Not Available Not Avai lable albuterol sulfate HFA 90 mcg/actuati on aerosol inhaler INHALE 2 PUFFS BY MOUTH EVERY 4 TO 6 HOURS NEEDED FOR SHORTNESS OF BREATH OR WHEEZING 05/04 completed Not Available Not Available Not Available metformin ER 500 mg tablet,exte nded release 24 hr active Not Available Not Available Not Available Cinnamon 04/21 completed Not Available Not Available Not Available Cholestyram ine Light 4 gram oral powder Take 1 scoop(s) twice a day by oral route. 03/18 completed Not Available Not Available Not Available OneTouch Ultra2 Meter USE TO CHECK GLUCOSE ONCE DAILY 05/04 completed Not Available Not Available Not Available OneTouch Delica Plus Lancet 30 gauge USE 1 TO CHECK GLUCOSE ONCE DAILY 05/04 completed Not Available Not Available Not Available Vitals Date Recorded Body height Body mass index (BMI) Body weight Oxygen saturation Oxygen saturation in Arterial blood by Pulse oximetry Heart rate Systolic And Diastolic Provider Name and Address Organization Details Last Updated DateTime 4 167.64 cm 36.8 kg/m2 144527. 06 g 99 % 99 % 82 /min 136/80 mm[Hg] Anju Gay MA [facility] 4 11:53:33 Date Recorded Body height Body mass index (BMI) Body weight Oxygen saturation Oxygen saturation in Arterial blood by Pulse oximetry Heart rate Respiratory rate Systolic And Diastolic Provider Name and Address Organization Details Last Updated DateTime 5 167.64 cm 37.1 kg/m2 779461. 25 g 97 % 97 % 94 /min 18 /min 128/71 mm[Hg] Suzie Matute MA [facility] 5 16:03:57 Date Recorded Body height Respiratory rate Body mass index (BMI) Body weight Body temperature Heart rate Oxygen saturation Oxygen saturation in Arterial blood by Pulse oximetry Systolic And Diastolic Provider Name and Address Organization Details Last Updated DateTime 3 167.64 cm 16 /min 38.1 kg/m2 455932. 8 g 97.6 [degF] 68 /min 98 % 98 % 134/72 mm[Hg] Marie Lozano [facility] 3 11:50:46 Date Recorded Body height Body mass index (BMI) Body weight Oxygen saturation Oxygen saturation in Arterial blood by Pulse oximetry Heart rate Respiratory rate Systolic And Diastolic Provider Name and Address Organization Details Last Updated DateTime 3 167.64 cm 37.4 kg/m2 708644. 43 g 98 % 98 % 68 /min 18 /min 120/70 mm[Hg] Trina Lang MA [facility] 3 14:36:20 Date Recorded Body height Body mass index (BMI) Body weight Heart rate Oxygen saturation Oxygen saturation in Arterial blood by Pulse oximetry Systolic And Diastolic Provider Name and Address Organization Details Last Updated DateTime 3 167.64 cm 36.8 kg/m2 440357. 66 g 66 /min 99 % 99 % 120/70 mm[Hg] Demetria Ortiz MA [facility] 3 10:29:05 Social History Question Answer Notes LastModified by Organizat ion Details LastModified Time Tobacco Smoking Status Never Smoker Darlene Zarate PA-C Attn: Accounting,[address] [place], [address], [facility] 05/15/2015 15:33:59 Do You Have An Advance Directive? No [email or web address] Information not available 05/15/2015 What Is Your Level Of Caffeine Consumption? Occasional [email or web address] Information not available 05/15/2015 How Much Tobacco Do You Chew? None [email or web address] Information not available 05/15/2015 What Type Of Diet Are You Following? REGULAR Information not available 05/15/2015 Which Illicit Or Recreational Drugs Have You Used? 0 [email or web address] Information not available 05/15/2015 Are There Any Guns Present In Your Home? No Information not available 05/15/2015 Hard Of Hearing Or Deaf In One Or Both Ears? No Information not available 05/15/2015 Legally Blind In One Or Both Eyes? No [email or web address] Information no t available 05/15/2015 Live Alone Or With Others? With Others Information not available 05/15/2015 What Was The Date Of Your Most Recent Tobacco Screening? 05/04/2025 [email or web address] Information not available 05/04/2025 How Many Children Do You Have? 1 [email or web address] Information not available 05/15/2015 Do You Use Protection During Sex? Always [email or web address] Information not available 05/15/2015 Seat Belts Used Routinely Yes [email or web address] Information not available 05/15/2015 Are You Sexually Active? Yes Information not available 05/15/2015 Smoke Alarm In Home Yes [email or web address] Information not available 05/15/2015 Are You Passively Exposed To Smoke? No [email or web address] Information no t available 05/15/2015 How Much Tobacco Do You Smoke? No Information not available 09/29/2020 General Stress Level Low [email or web address] Information not available 05/15/2015 Do You Use Sunscreen Routinely? Yes [email or web address] Information not available 05/15/2015 Has Tobacco Cessation Counseling Been Provided? No Information not available 08/15/2022 On What Date Was Tobacco Cessation Counseling Provided? 05/04/2025 [email or web address] Information not available 05/04/2025 Sex: Male Functional Status Question Answer Note LastModified by Organizat ion Details LastModified Time Do you or have you ever used any other forms of tobacco or nicotine? No [email or web address] Information not available 04/21/2024 What is your level of alcohol consumption? Occasional [email or web address] Information not available 05/15/2015 Do you or have you ever used smokeless tobacco? Never used [email or web address] tobacco Information not available 09/29/2020 Are you currently employed? No On disability for back [email or web address] Information not available 05/15/2015 Are you able to care for yourself? Yes [email or web address] Information not available 05/15/2015 Do you or have you ever used e-cigarettes or vape? Never used electronic cigarettes Information not available 09/29/2020 What is your exercise level? Occasional [email or web address] Information not available 05/15/2015 Mental Status None recorded. Family History Relationship Description Onset Age of this Age Resolved Age Notes LastModified by Organization Details LastModified Time Mother Asthma [email or web address] Not available 0 10/25/2015 12:23:28 Mother Depressive disorder [email or web address] Not available 2015 12:23:28 Mother Diabetes mellitus [email or web address] Not available 2015 12:23:28 Mother Hypertensive disorder [email or web address] Not available 2015 12:23:28 Mother Hypercholest erolemia [email or web address] Not available 2015 12:23:28 Father Harmful pattern of use of alcohol [email or web address] Not available 2015 12:23:28 Father Hypertensive disorder [email or web address] Not available 2015 12:23:28 Father Hypercholest erolemia [email or web address] Not available 2015 12:23:28 Sister Hypertensive disorder [email or web address] Not available 2015 12:23:28 Sister Hypercholest erolemia [email or web address] Not available 2015 12:23:28 Sister Depressive disorder [email or web address] Not available 2015 12:23:28 Sister Diabetes mellitus Not available 2015 12:23:28 Sister Disorder of thyroid gland [email or web address] Not available 2015 12:23:28 Brother Hypertensive disorder [email or web address] Not available 2015 12:23:28 Brother Hypercholest erolemia Not available 2015 12:23:28 Medical History Condition Response High Cholesterol Y Immunizations Vaccine Type Date Status Note Provider Nam e and Address Organization Details Recorded Time Tdap 12/18/2016 completed Not Available [facility] 10/30/2019 02:41:25 Tdap 05/29/2024 completed Not Available [facility] 05/04/2025 16:00:26 Past Encounters Encounter ID Performer Location Encounter Start Date Encounter Closed Date Diagnosis/Indication Diagnosis SNOMED-CT Code Diagnosis ICD10 Code Diagnosis Note [id number] MD Roxie Qureshi (Adult Med) [address] [place] [address]1115-[address] 0 05/15/2015 14:17:07 05/15/2015 15:34:22 Adult health examination 782604748 Venereal d isease screening 582831584 Increased blood pressure 28013880 Edema 383216942 Lipoma 60744718 on right bicep - will monitor has not changed in shape/size /non-painf ul present for years [id number] MD Roxie Qureshi (Adult Med) [address] [place] [address] 70356-423 0 05/22/2015 11:37:57 05/22/2015 13:36:31 Blood glucose outside reference range 326198840 Increased blood pressure 31780035 Will add lisinopril 20mg RTC in 1-2 weeks [id number] MD Roxie Qureshi (Adult Med) [address] [place] [address] [id number] 0 05/31/2015 10:57:47 05/31/2015 11:44:57 Increased blood pressure 98561249 Will decrease lisinopril 10mg RTC in 1-2 weeks lost 3lbs Edema 828243737 Improve d [id number] MD Roxie Qureshi (Adult Med) [address] [place] [address] 47126-676 0 10/25/2015 12:14:26 10/25/2015 12:30:20 Essential hypertension 54970009 I10 Hyperlipidemia 27990952 E78.5 [id number] MD Roxie Hernandez (Adult Med) [address] [place] [address] 47095-580 0 03/18/2016 14:03:41 03/18/2016 14:53:35 Essential hypertension 65169602 I10 Well controlled with lisinopril 10/HCTZ 12.5 Hyperlipidemia 76434708 E78.5 Recheck LFTs and cholestero l today Currently taking simvastati n 40mg [id number] MD Roxie Hernandez (Adult Med) [address] [place] [address] [phone] 12/18/2016 10:58:29 12/19/2016 10:16:25 Blood glucose outside reference range 017159597 R73.09 WIll check a1c today Hyperlipidemia 75410039 E78.5 Currently taking simvastati n 40mgWill recheck fasting labs today Essential hypertension 15201824 I10 110/60 - NAD, WNL - c/w current mediation Obesity 814782932 E66.9 Advised 30 minutes of exercise 5 days/week Advised to not drink her calories Advised 3 balanced meals/day with plenty of fruits and vegetables Active or passive immunization 281785439 Z23 [id number] MD Roxie Hernandez (Adult Med) [address] [place] [address] 76029-726 0 04/29/2017 08:50:17 04/30/2017 18:28:52 Leukocytosis 251768021 D72.829 Will repeat today Essential hypertension 57542970 I10 118/70 - NAD, WNL - c/w current mediation Hyperlipidemia 90384522 E78.5 Currently taking simvastati n 40mgWill recheck fasting labs today Obesity 909032176 E66.9 Advised 30 minutes of exercise 5 days/week Advised to not drink her calories Advised 3 balanced meals/day with plenty of fruits and vegetables [id number] MD Roxie Hernandez (Adult Med) [address] [place] [address] [phone] 0 09/10/2018 16:12:10 09/11/2018 09:07:32 Essential hypertension 33582029 I10 112/60- NAD, WNL - c/w current mediation Discussed DASH diet Advised 30 minutes of exercise minimum dailyAdvis ed tobacco, alcohol, caffeine all increase BPAdvised goal for BP is <140/90 Hyperlipidemia 21643749 E78.5 Currently taking simvastati n 40mgWill recheck fasting labs today Body mass index 30+ - obesity 728989523 Z68.36 Advised 30 minutes of exercise 5 days/week Advised to not drink her calories Advised 3 balanced meals/day with plenty of fruits and vegetables [id number] MD Roxie Hernandez (Adult Med) [address] [place] [address] [phone] 0 10/08/2018 12:23:22 10/09/2018 09:18:53 Liver enzymes outside reference range 635431604 R94.5 Blood gluc ose outside reference range 478232722 R73.09 WIll check a1c today Body mass index 30+ - obesity 234470051 Z68.36 Advised 30 minutes of exercise 5 days/week Advised to not drink her calories Advised 3 balanced meals/day with plenty of fruits and vegetables Essential hypertension 77378810 I10 122/70 - nad, wnl c/w current medication Discussed DASH diet Advised 30 minutes of exercise minimum dailyAdvis ed tobacco, alcohol, caffeine all increase BPAdvised goal for BP is <140/90 [id number] GRETA CHEN (Adult Med) [address] [place] [address] [phone] 0 07/30/2019 11:02:31 08/02/2019 08:47:26 Adult health examination 684270529 Z00.00 PHQ 2/9 was negative in office today (0 out of 27) Hyperlipidemia 12753180 E78.5 Controlled with simvastati n 40 mg- Will check lipids today Essential hypertension 45345975 I10 BP Today: 118/72c/w lisinopril 10 mg - hctz 12.5 mg Discussed DASH diet Advised 30 minutes of exercise minimum daily Advised tobacco, alcohol, caffeine all increase BP Advised goal for BP is <140/90 Contact office if BP is > 140/90 consistent ly DIscussed consequenc es of HTN including kidney, eye, heart damage, stroke, and even RTC 6 months for BP check Blood gluc ose outside reference range 363655508 R73.09 HgbA1c was 6.0 on 10/08/19- Will check again today Body mass index 30+ - obesity 420042009 Z68.38 -Discussed lifestyle modificati ons including 150 minutes moderate intensity exercise per week, restrictin g intake of fast/proce ssed foods, sweets, sugary beverages. [id number] GRETA CHEN (Adult Med) [address] [place] [address] [phone] 0 09/29/2020 08:25:44 10/02/2020 08:58:51 Hyperlipidemia 57136817 E78.5 Currently taking simvastati n 40 mgCholeste rol levels still elevated 07/2019- will send refills - due for repeat labs Essential hypertension 97832044 I10 BP Today: unable to check todayc/w lisinopril 10 mg - hctz 12.5 mg Discussed DASH diet Advised 30 minutes of exercise minimum daily Advised tobacco, alcohol, caffeine all increase BP Advised goal for BP is <140/90 Contact office if BP is > 140/90 consistent ly DIscussed consequenc es of HTN including kidney, eye, heart damage, stroke, and even - RTC 6 months for BP check- continue with medication s Adult heal th examination 596874938 Z00.00 - patient aware he needs to return to office for fasting labs Body mass index 30+ - obesity 284378244 Z68.38 -Discussed lifestyle modificati ons including 150 minutes moderate intensity exercise per week, restrictin g intake of fast/proce ssed foods, sweets, sugary beverages. Type 2 levy betes mellitus 61570223 E11.9 New diagnosis on 07/30/19Hg bA1c was 6.8Was advised to complete lifestyle changes and RTC in 3-6 monthsPati ent has not returned to clinic since diagnosis- advised to return to clinic for labs- C/w lifestyle changes at home for now Liver enzy mes outside reference range 770063781 R94.5 07/31: ALP 150, AST 82, ALT 94736/18: Normal GGT test and hepatitis panel- WIll continue to monitor liver function tests, likely liver steatosis [id number] GRETA CHEN (Adult Med) [address] [place] [address] 06/08/2021 08:52:22 06/13/2021 15:18:38 Hyperlipidemia 14635146 E78.5 Currently taking simvastati n 40 mgCholeste rol levels still elevated 07/2019, did not repeat labs after our last visit- will send refills- due for repeat labs Essential hypertension 59577169 I10 BP Today: unable to check todayc/w lisinopril 10 mg - hctz 12.5 mg Discussed DASH dietAdvise d 30 minutes of exercise minimum dailyAdvis ed tobacco, alcohol, caffeine all increase BPAdvised goal for BP is <140/90Con tact office if BP is > 140/90 consistent lyDIscusse d consequenc es of HTN including kidney, eye, heart damage, stroke, and even - RTC 6 months for BP check- continue with medication s Type 2 levy betes mellitus 92233640 E11.9 New diagnosis on 07/30/19Hg bA1c was 6.8Was advised to complete lifestyle changes and RTC in 3-6 months. Not currently on medication . Does not check BS at home.Did not complete labs after last visit- advised to return to clinic for labs- C/w lifestyle changes at home for now Liver enzy mes outside reference range 030212457 R94.5 07/31: ALP 150, AST 82, ALT 16329/18: Normal GGT test and hepatitis panel- WIll continue to monitor liver function tests, likely liver steatosis Adult [facility] th examination 210127866 Z00.00 - patient aware he needs to return to office for fasting labsPHQ 11/21 was negative in office today (0 out of 27) Body mass index 30+ - obesity 382280016 Z68.38 -Discussed lifestyle modificati ons including 150 minutes moderate intensity exercise per week, restrictin g intake of fast/proce ssed foods, sweets, sugary beverages. Screening for malignant neoplasm of colon 675861200 Z12.11 No prior colonoscop yDenies change in bowel habits and blood in the stool [id number] GRETA CHEN (Adult Med) [address] [place] [address] 11/23/2021 09:48:36 11/26/2021 17:48:59 Hyperlipidemia 40589379 E78.5 Currently taking simvastati n 40 mg, admits to taking intermitte ntlyCholes terol levels still elevated 07/2019, did not repeat labs after our last visit- will send refills- due for repeat labs Essential hypertension 46601878 I10 BP Today: 138/80, did not take his medication this morningc/w lisinopril 10 mg - hctz 12.5 mg Discussed DASH dietAdvise d 30 minutes of exercise minimum dailyAdvis ed tobacco, alcohol, caffeine all increase BPAdvised goal for BP is <140/90Con tact office if BP is > 140/90 consistent lyDIscusse d consequenc es of HTN including kidney, eye, heart damage, stroke, and even - RTC 6 months for BP check- continue with medication s Type 2 levy betes mellitus 63648113 E11.9 New diagnosis on 07/30/19, HgbA1c was 6.8Was advised to complete lifestyle changes and RTC in 3-6 months. Not currently on medication . Does not check BS at home. Did not complete labs after last visit- will check HgbA1c with other labs Liver enzy mes outside reference range 357547939 R94.5 07/31: ALP 150, AST 82, ALT 84129/18: Normal GGT test and hepatitis panel- WIll continue to monitor liver function tests, likely liver steatosis Adult [facility] th examination [id number] Z00.00 Due for screening labs Body mass index 30+ - obesity 123208139 Z68.38 BMI >35-Discus sed lifestyle modificati ons including 150 minutes moderate intensity exercise per week, restrictin g intake of fast/proce ssed foods, sweets, sugary beverages. Screening for malignant neoplasm of colon 963502365 Z12.11 No prior colonoscop yDenies change in bowel habits and blood in the stoolDid not follow through with GI referral, have been very busy recently and would like to do cologuard instead Peptic ulcer 65585932 K2 7.9 Developed new epigastric pain 2 weeks ago, started randomly and occurs intermitte ntly, usually worse at night when sleeping or in the morning. He does not think the pain is related to his food consumptio n. Drinking milk improved his symptoms.H is was recently treated for H pylori. He denies daily NSAID use and heavy alcohol use.Denies fever, chills, nausea, vomiting, diarrhea, constipati on, blood in the stool, or dysuria.- will start PPI for 6-8 weeks to treat possible PUD- plan to test for H plyori [id number] GRETA CHEN (Adult Med) [address] [place] [phone] 08/15/2022 11:23:04 08/19/2022 12:08:03 Type 2 diabetes mellitus 09972190 E11.9 Diagnosis on 07/30/19, HgbA1c today 6.6; 6.8 previously -Pt to continue lifestyle changes. Not currently on medication . Does not check BS at home. Did not complete labs previously ordered. Exposure t o genital trichomoniasis 428905539 Z20.2 Partner recently tested positive for trich. Admits to having a third person in their relationsh ipDenies groin Itching, burning, erythema, pain, discomfort upon urination, unusual discharge- urine collected today for testing- start medication to cover for trich due to exposure, avoid intercours e while taking medication and x 7 days after, avoid alcohol while taking [id number] GRETA CHEN (Adult Med) [address] [place] [phone] 06/12/2023 11:32:07 06/14/2023 08:32:26 Type 2 diabetes mellitus 29055549 E11.9 Diagnosis on 07/30/19, HgbA1c: 7.4 today (06/12/2023 ), 6.6 before that; 6.8 previously Taking Metformin 500 mg QD but admits to forgetting to take it this past month and eating more unhealthyA CE: lisinopril 10 mgStatin: simvastati n 20 mg- increase metformin to BID- stressed the importance of making lifestyle changes- f/u in 3 months Essential hypertension 31625188 I10 BP Today: 134/72c/w lisinopril 10 mg - hctz 12.5 mg, has been bad at taking his medicaiton this past month Discussed DASH dietAdvise d 30 minutes of exercise minimum dailyAdvis ed tobacco, alcohol, caffeine all increase BPAdvised goal for BP is <140/90Con tact office if BP is > 140/90 consistent lyDIscusse d consequenc es of HTN including kidney, eye, heart damage, stroke, and even - RTC 6 months for BP check- continue with medication s Hyperlipidemia 12527055 E78.5 Currently taking simvastati n 40 mg, admits to taking intermitte ntlyCholes terol levels still elevated 11/2021- start taking cholestero l medication regularly- recheck today Obesity 460145721 E66.9 Advised decreased portion sizes, good food choices, limited eating out or fast food and eliminate soda and juice from diet. Advised physical activity daily and offered encouragem ent to continue with positive changes made so far. Depression screening 171 500531 Z13.31 PHQ 11/21 was negative in office today (0 out of 27) Instabilit y of joint of right knee [id number] 588392 M25.361 Remembers feeling a pulling sensation/ twinge in the back of the R knee about 7-8 months ago, thought he pulled a muscle so he just continued on. Since then, has struggling with fully extending right knee, mild posterior R knee pain, and instabilit y of the R knee. Unable to bear all his weight on right leg currently. Pain is very mild. No swelling or erythema. No popping/cr acking.DDX : hamstring strain vs meniscal tear vs LCL injury- xray of knee ordered- start NSAID x 2 weeks- start hamstring stretches- brace for instabilit y- consider PT and MRI if symptoms do not improve Pain of left hand 828426 9145 11709 M79.642 Cut his left 2nd digit on the posterior aspect near the PIP joint about 1 month ago, admits to it being a deep cut. No medical care at the time, wound healed well.Compl aining of anterior 2nd digit MCP joint pain and swelling that started 1 week after his laceration , pain is worse in the morning and joint feels stiff. Unable to flex left 2nd digit completely today with some difficulty extending 2nd joint after being in flexed position- possible extensor tendon injury from laceration - xray of hand due to pain and swelling at MCP joint- start NSAID x 2 weeks [id number] MD Roxie Carvajal (Adult Med) [address] [place] [phone] 07/07/2023 14:26:36 07/14/2023 13:08:52 Instability of joint of right knee [id number] 302770 M25.361 Instabilit y of right knee with posterior medial knee pain and positive Miranda manuver on exam. Will proceed with MRI. Follow up after MRI. [id number] GRETA CHEN (Adult Med) [address] [place] [phone] 09/16/2023 10:19:01 09/17/2023 10:58:50 Type 2 diabetes mellitus 85407513 E11.9 Diagnosis on 07/30/19; HgbA1c: 7.0 (09/16/23), 7.4 (06/12/2023 ), 6.6 before that; 6.8 previously Taking Metformin 500 mg QD consistent ly (not interested in increasing dose)ELISABETH: lisinopril 10 mgStatin: simvastati n 20 mgFoot exam: normal (09/16/23) - c/w metformin QD- stressed the importance of making lifestyle changes- f/u in 3 months Essential hypertension 62277800 I10 BP Today: 120/70c/w lisinopril 10 mg - hctz 12.5 mg, has been bad at taking his medicaton this past month Discussed DASH dietAdvise d 30 minutes of exercise minimum dailyAdvis ed tobacco, alcohol, caffeine all increase BPAdvised goal for BP is <140/90Con tact office if BP is > 140/90 consistent lyDiscusse d consequenc es of HTN including kidney, eye, heart damage, stroke, and even - RTC 6 months for BP check- continue with medication s Hyperlipidemia 23191884 E78.5 Currently taking simvastati n 40 mg, admits to taking intermitte ntlyCholes terol levels still elevated 11/2021- start taking cholestero l medication regularly- recheck today Pain of left hand 799739 3691 60366 M79.642 Cut his left 2nd digit on the posterior aspect near the PIP joint in 05/2023, admits to it being a deep cut. No medical care at the time, wound healed well. Hx of anterior 2nd digit MCP joint pain and swelling that started 1 week after laceration , pain is worse in the morning and joint feels stiff. Unable to flex left 2nd digit completely today with some difficulty extending 2nd joint after being in flexed position. Reports stiffness and pain has been worsening. - possible extensor tendon injury from laceration - Gave order for x-ray of left hand Obesity 138549621 E66.9 Advised decreased portion sizes, good food choices, limited eating out or fast food and eliminate soda and juice from diet. Advised physical activity daily and offered encouragem ent to continue with positive changes made so far. Tear of me dial meniscus of knee 962729363 S83.241A Hx of feeling a pulling sensation/ twinge in the back of the R knee about 1 year ago. Has continued to struggle with fully extending right knee, mild posterior R knee pain, and instabilit y of the R knee. Pain is very mild. No swelling or erythema. No popping/cr acking.MRI completed on 08/14/23: medial meniscus tear, grade 1 MCL strain, and tricompart emental chondromal acia- continue f/u with ortho surgery- use brace for instabilit y [id number] Bailey Luna MD [facility] (Adult Med) [address] [place] [address] 04/21/2024 11:09:54 04/22/2024 14:56:37 Essential hypertension 41490105 I10 Hyperlipidemia 86579279 E78.5 Type 2 levy betes mellitus 24414575 E11.9 Steatotic liver disease 615134253 K76.0 Renal mass 042116804 N28 .89 Morbid obesity 993909369 E66.01 Screening for malignant neoplasm of prostate 413334525 Z12.5 Cough 28604207 R05.9 Bronchitis 85710630 J40 [id number] Tex Uribe MD Pending sale to [facility] [address] [place] [address] 05/04/2025 15:59:29 05/04/2025 16:42:35 Type 2 diabetes mellitus 14335494 E11.9 glucose meter, strips, lancets2 mountain dew per daya1c 10.2 Essential hypertension 52307463 I10 Mixed hyperlipidemia 267 194301 E78.2 Screening for malignant neoplasm of colon 408601430 Z12.11 Pain of bi lateral hands 5450626709 4926799 M79.641 M79.642 Pain of knee region 1003 421724 M25.561 G89.29 MRI completed on 08/14/23: medial meniscus tear, grade 1 MCL strain, and tricompart emental chondromal acia taking aleve Long-term current use of drug therapy 605102579 Z79.899 Acquired t straw hat brusher finger of left middle finger 4250372154 12750 M65.332 Hyperlipidemia 28386925 E78.5 Depression screening 171 985425 Z13.31 PHQ 6 Health Concerns Section Related Observation LastModified by Organization Detai ls LastModified Time None Recorded Concern Status LastModified by Organization Details LastModified Time None Recorded Advance Directives Directive N: Payers Insurance Date Sequence Insurance Name Policy Number Policy Hoffman Covered Member ID Hoffman Member ID Guarantor Name 05/04/2025 2 [place] [facility] Don Amech Buneta [id number] Don Buneta 05/04/2025 1 [place] Don A Buneta [id number] Don Buneta 05/04/2025 [place] [facility] Don A Buneta [id number] Don Buneta 05/04/2025 2 [place] MED[place] OR MEDICARE REPLACEMENT PRIMARY) Don Amech Buneta [id number] Don Buneta 05/04/2025 1 [employer] - PREMIER PLAN - DUAL (MEDICARE - MEDICAID REPLACEMENT HMO) Don Amech Buneta [id number] Don Buneta 05/04/2025 2 [facility] - [employer] BETTER [employer] PREMIER - DUAL ELIGIBLE (MEDICARE REPLACEMENT/AD VANTAGE - HMO) Don Buneta [id number] Don Buneta 05/04/2025 2 [place] [facility] [place] Don Amech E Buneta [id number] Don Buneta 05/04/2025 1 [place] Don A Buneta [id number] Musa Florian Notes Date Note Type Note Provider Name and Address Organization Details Recorded Time 06/12/2023 text/html 53 year old male with a history of controlled T2DM, HTN, and HLD presents today for medication refill and right knee instability. Admits to forgetting to take his medication over the last month, they moved the medications due to having young kids in the house and now that it is not in same spot he tends to forget. 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 Denies chest pain, SOB, headaches, vision changes, and weight loss. Remembers feeling a pulling sensation/twinge in the back of the R knee about 7-8 months ago, thought he pulled a muscle so he just continued on. Since then, has struggling with fully extending right knee, mild posterior R knee pain, and instability of the R knee. Unable to bear all his weight on right leg currently. Pain is very mild. No swelling or erythema. No popping/cracking. GRETA CHEN Attn: [address]ing[address] [place], [address], [facility] 06/12/2023 17:24:03 07/07/2023 text/html right knee pain, had problems six months ago, three weeks ago came in here, was going to get xray done but ended up in ER, was messing with hot water heater and pliars slid, fell and landed on right knee, went to ER, did an xray, has not been taking pain medication, more walks on it the worse it is, when drive the motion of holding foot down aggravates it, pain is behind knee and on left side, if on it a lot notices swelling on top, no redness, sometimes feels like it will give out, brace helps, no popping sounds, can't completely bend or straighten, has given out before Vanessa Green MD Attn: [address] [place], [address], [facility] 07/10/2023 13:44:34 09/16/2023 text/html Musa is 53 yo mal e with a pmhx of T2DM, HTN, HLD, and steatosis of liver who presents for follow-up. He states he had the MRI completed and has an appointment with ortho surgery this , 08/19/23. R Knee still bothersome. He wears brace and reports instability. Pain has been tolerable, does not take any pain medication. Regarding DM, takes metformin once per day. He has been making efforts to lose weight through diet changes. He has been occasionally taking his BS at home, last fasting reading was 177. Denies visual changes, GI sx, or lesions on feet. Reports he did not have imaging. completed of left hand that was ordered at last visit. Reports increased stiffness in the AM, decreased ROM at left pointer finger, and swollen pointer finger. States he will be waking up in the evening due to pain. Denies taking pain medication. Denies fever, chills, nausea, vomiting, headaches, chest pain, SOB, abdominal pain, diarrhea, constipation, or dysuria. GRETA CHEN Attn: Accounting[address] [facility], [place], [address], [facility] 09/16/2023 13:48:59 04/21/2024 text/html Changing PCP. Persistent cough for the past month. Occasionally productive of green mucus. Disability due to back injury. Bailey Luna MD Attn: [address]ing[address] [facility], [place], [address], [facility] 04/21/2024 12:57:19
--- OUTSIDE RECORDS SUMMARY | 2025-05-04 16:34 | XMS_ITS | Data Portability ---
Author Organization [place] [facility], Main Office Address [address] [place] [phone] Care Team Providers Care Masonry Contractor Administrator Name Role Phone KELSY CHOUDHURY Primary Care Provider [phone] KELSY CHOUDHURY Referring Provider Assessment Encounter Date Assessment Date Assessment LastModified by Organization Details LastModified Time 09/18/2023 09/18/2023 HPI: 53-year-old male came in today for evaluation of his right knee pain. He has been having pain on off for about 6 months. In June he slipped going down some steps. His knee gave out and he fell forward landing hard on the knee. He had rather severe pain after that. It has quickly improved. Patient did have x-rays done after his fall in June her primary care doctor which were nonweightbearing. They show no bony abnormalities. I did review these x-rays. Patient had an MRI scan done of the knee from his primary care doctor little more than a week ago which I reviewed the images. They show a radial tear of the medial meniscus with significant widening of the tear. I think this is most likely old. There is no bony edema in the medial compartment. He has moderate patellofemoral osteoarthritis on the MRI scan. There is cystic changes and subchondral bone of the patella. There is no edema and the trochlea. Significant loss cartilage through the trochlea and lateral margin of the trochlea lateral compartment looks relatively normal. ACL PCL are both intact. Again no bony edema in the medial compartment. Patient at this point is not taking any anti-inflammatori es. He feels that his knee is not that painful. He was just a little concerned about the give way episodes in the fall. When I asked him about having any severe pain in the past or pop in the knee that would correlate to the radial tear and he does not recall an episode in the past. Physical exam: 53-year-old male he is 5 ft 4 and 226 lb BMI is 38.6. He has no definite effusion in the right knee. He has callus over the anterior aspect her knee from work. There is no redness or warmth noted. Range of motion is from 0-135 degrees. He has some mild tenderness to the mid medial joint line and mild to moderate pain with patellofemoral grind. No lateral joint line tenderness. no edema in lower extremities. He walks relatively well today without limp. Hip range of motion is full without discomfort. Normal stability in the knee. 2+ dorsalis pedis pulse. Impression: Patient has moderate osteoarthritis of the patellofemoral joint in the right knee best seen on the MRI scan. He also has a radial tear of the medial meniscus which I think is old given the fact that there is no bony edema in the medial compartment and the radial tear has widened quite a bit. Overall at this point symptoms are minimal. I reviewed the MRI scan as well as the x-ray images with the patient. Talked about the use of anti-inflammatori es on as-needed basis and he is going to start taking some eigh-lrl-xrjuiro Aleve more regularly to see if this will help with his symptoms. We talked about cortisone injections in the knee which can be utilized if his symptoms become intolerable he will keep that in mind. We talked about weight loss. His BMI is 38 today and certainly by decreasing his weight he will help with his symptoms. He is only 53 we discussed that I think at some point he is definitely going to need total knee arthroplasty on the knee. With loss of the medial meniscus due to the radial tear his medial compartment is going to get more of a load and most likely where more quickly through the next several years. At this point he is comfortable and tolerable. Again he is going to start taking Aleve more regularly to see if this helps with any symptoms. We will see him back as needed. [email or web address] Not available 09/18/2023 15:22:20 Plan of Treatment Reminders Order Date Submit Date Provider Last Modified By Organization Details Last Modified Time Details Appointments None record ed. Lab None record ed. Referral None record ed. Procedures None record ed. Surgeries None record ed. Imaging XR, knee 023 09/18/20 [email or web address], [address], [place], [address], 16:19:02 Medication Orders None record ed. Patient TargetsNo targets recorded. Patient InstructionsNo instructions recorded. Reason for Referral None Reported. Results Created Date Observation Date Name Description Value Unit Range Abnormal Flag Note LastModifiedBy Organization Detail LastModifiedTime 09/18/20 XR, knee No observ ation record ed. [email or web address] [facility] [address], [place], [address], 09/18/2023 15:17:07 09/18/2006/25/2023 XR, knee No observ ation record ed. [email or web address] Not Available 2022 17:35:39 09/18/2008/14/2023 MRI, knee, w/o contr ast No observ ation record ed. [email or web address] Not Available 2022 17:36:31 09/29/20 23 09/18/2023 XR, hand, 3 or more view No observ ation record ed. [email or web address] Not Available 09/12 15:07:49 Result Notes None recorded. Problems Name Problem SNOMED Code Status Onset Date Resolution Date Notes Provider Name and Address Organization Details Recorded Time Pain of right knee joint 631794668634710 Active 2022 YAYA Calvillo [place] [facility] 11:10:22 Notes:Some problems listed i n Document: #[id number] could not be added to this patient's chart. Please review this document and add these problems to the patient's chart manually as needed. Problem Notes None recorded. Procedures Surgical History Date Name Laterality Status Provider Name and Address Organization Details Recorded Time Back Surgery completed YAYA Calvillo [facility] 09/18/2023 11:08:46 Carpal tunnel surgery completed YAYA Calvillo [facility] 09/18/2023 11:09:16 Appendectomy completed YAYA Calvillo [facility] [employer] [facility] 09/18/2023 11:09:40 Imaging Results None recorded. Procedure Notes None recorded. Medical Equipment None Reported. Allergies Allergen ID Allergen Name Allergen Category Reaction Reaction Severity Criticality Documentation Date Start Date Code Code System Note Provider Name and Address Organization Details Recorded Time 52662 Keflex medicatio n Not available Not available Not available 09/18/202366301 7 RxNorm YAYA Calvillo, [facility] [employer] [facility] 11:04:45 Medications Name Sig Start Date Stop Date Status Note LastModified by Organization Details LastModified Time cetirizine 10 mg tablet TAKE 1 TABLET BY MOUTH ONCE DAILY active Not Available Not Available No t Available azithromyci n 250 mg tablet TAKE 2 TABLETS BY MOUTH ON DAY 1, AND THEN TAKE 1 TABLET BY MOUTH ONCE A DAY ON DAY 2 THROUGH DAY 5 active Not Available Not Available No t Available meloxicam 15 mg tablet TAKE 1 TABLET BY MOUTH ONCE DAILY WITH MEALS FOR 14 DAYS 09/18 completed Not Available Not Available Not Available simvastatin 40 mg tablet TAKE 1 TABLET BY MOUTH ONCE DAILY IN THE EVENING active Not Available Not Available No t Available OneTouch Ultra Test strips USE 1 STRIP TO CHECK FASTING GLUCOSE IN THE MORNING active Not Available Not Available No t Available prednisone 50 mg tablet TAKE 1 TABLET BY MOUTH ONCE DAILY FOR 5 DAYS active Not Available Not Available No t Available lisinopril 10 mg-hydrochl orothiazide 12.5 mg tablet TAKE 1 TABLET BY MOUTH ONCE DAILY FOR HIGH BLOOD PRESSURE active Not Available Not Available No t Available albuterol sulfate HFA 90 mcg/actuati on aerosol inhaler INHALE 2 PUFFS BY MOUTH EVERY 4 TO 6 HOURS NEEDED FOR SHORTNESS OF BREATH OR WHEEZING active Not Available Not Available No t Available metformin ER 500 mg tablet,exte nded release 24 hr TAKE 1 TABLET BY MOUTH TWICE DAILY WITH MEALS active Not Available Not Available No t Available OneTouch Ultra2 Meter USE TO CHECK GLUCOSE ONCE DAILY active Not Available Not Available No t Available OneTouch Delica Plus Lancet 30 gauge USE 1 TO CHECK GLUCOSE ONCE DAILY active Not Available Not Available No t Available Vitals Date Recorded Body height Body mass index (BMI) Body weight Provider Name and Address Organization Details Last Updated DateTime 09/18/2023 162.56 cm 38.8 kg/m2 391057.88 g YAYA Cal[place]illo [place] [facility] 09/18/2023 11:17:01 Social History None recorded. Functional Status Question Answer Note LastModified by Organization D etails LastModified Time What is your level of alcohol consumption? None [email or web address] Information not available 09/18/2023 Mental Status None recorded. Family History Relationship Description Onset Age of this Age Resolved Age Notes LastModified by Organization Details LastModified Time Mother Hypertensive disorder Not available 2022 11:08:20 Sister Diabetes mellitus [email or web address] Not available 2022 11:08:27 Medical History Condition Response DIABETES, TYPE Y Past Encounters Encounter ID Performer Location Encounter Start Date Encounter Closed Date Diagnosis/Indication Diagnosis SNOMED-CT Code Diagnosis ICD10 Code Diagnosis Note [id number] Hermann Chaudhry MD [facility] [address] [address] 09/18/2023 10:33:03 09/18/2023 15:39:26 Pain of right knee joint 2553142986 08778 M25.561 Health Concerns Section Related Observation LastModified by Organization Detai ls LastModified Time None Recorded Concern Status LastModified by Organization Details LastModified Time None Recorded Advance Directives Directive None Recorded Payers Insurance Date Sequence Insurance Name Policy Number Policy Hoffman Covered Member ID Hoffman Member ID Guarantor Name 05/04/2024 1 [employer] BET[employer] - PREMIER PLAN - DUAL (MEDICARE - MEDICAID REPLACEMENT HMO) Musa Florian [id number] Musa Florian
--- OUTSIDE RECORDS SUMMARY | 2025-05-04 16:34 | XMS_ITS | Referral Summary ---
Author Organization [facility] Address [facility] [place] [address] Care Team Providers Care Paper Folding Machine Operator Name Role Phone Unknown, Notinfile Primary Care Provider Unavail able Allergies No known active allergies Social History Tobacco Use Types Packs/Day Years Used Date Smoking Tobacco: Unknown Tobacco Cessation:Counseling Given: Not Answered Personal Safety Answer Date Recorded Getting School Help Needed Not on file 07/11 Sex and Gender Information Value Date Recorded Sex Assigned at Not on file Legal Sex Male 10:44 AM [employer]PER [employer] Gender Identity Not on file Sexual Orientation Not on file Last Filed Vital Signs Vital Sign Reading [...] 06/25/2023 5:33 PM CDT Plan of Treatment Not on file Insurance [employer] [facility] Member Subscriber Plan / Payer (Ef fective 2021-Present) Name:Musa Florian Relation to Subscriber:Self Name:Musa Florian Payer ID:[id number] (NAIC) Group ID:Not on file Type:MEDICAID RISK OTHER Address: [facility] [id number] [place] [id number] [facility] [place] Care Teams Paper Folding Machine Operator Relationship Specialty Start Date End Date Unknown, Notinfile PCP - General 06/25/23
== END 2025-05-04 16:17 | disposition home or self-care (01) ==
PROVIDERS: PCP Physician Assistant; Visit Provider Physician Assistant
DX: M17.11 Unilateral primary osteoarthritis, right knee (principal); M25.561 Pain in right knee; G89.29 Other chronic pain
CPT/HCPCS: 73130; 73562